=== PATIENT | female | born 1995 | race Caucasian/White ===

== ENCOUNTER 2024-01-01 11:17 | Inpatient (IN) | payer OTHER ==
[2024-01-01] MEDS: ELECTROLYTE-148 SOLN 500 ML IV ONE (11:55)
[2024-01-01] MEDS: ELECTROLYTE-148 SOLN 1,000 ML IV SCH (12:25)
[2024-01-01 12:42] VITALS: BMI 28.9
[2024-01-01] MEDS ORDERED: LIGASURE IMPACT TP ONE (13:06)
[2024-01-01] MEDS ORDERED: ONDANSETRON 4 MG/2 ML VIAL IVPUSH PRN (13:12)
[2024-01-01] MEDS ORDERED: ACETAMINOPHEN 325 MG TABLET (FP) PO PRN (13:12)
[2024-01-01] MEDS ORDERED: IBUPROFEN 600 MG TABLET (FP) PO PRN (13:12)
[2024-01-01] MEDS ORDERED: SODIUM CHLORIDE 0.9% P/F 10 ML VIAL IJ ONE (13:20)
[2024-01-01] MEDS ORDERED: ceFAZolin SODIUM 1 GM VIAL ONE (13:20)
[2024-01-01] MEDS ORDERED: PHENYLEPHRINE HCL 10 MG/1 ML SINGLE DOSE VIAL ONE (13:38)
[2024-01-01] MEDS ORDERED: OXYTOCIN 10 UNITS/ML VIAL ONE ×3 (13:48→14:00)
[2024-01-01] MEDS ORDERED: ONDANSETRON 4 MG/2 ML VIAL ONE (14:04)
[2024-01-01] MEDS ORDERED: MIDAZOLAM HCL 2 MG/2 ML SINGLE DOSE VIAL ONE (14:05)
[2024-01-01] MEDS: morphine SULFATE/PF 1 MG/2 ML (2cc Syringe - QUVA) EP ONE (14:19)
[2024-01-01] MEDS ORDERED: OXYTOCIN 20 UNITS in 0.9% NS 20 UNIT/1,000 ML INFUS.BAG IV ONE (14:44)
[2024-01-01] MEDS: OXYTOCIN 20 UNITS in 0.9% NS 20 UNIT/1,000 ML INFUS.BAG IV SCH (14:50)
[2024-01-01] MEDS ORDERED: ACETAMINOPHEN INJECTION 100 ML IVPB ONE (16:05)
[2024-01-01] MEDS: ACETAMINOPHEN 1000 MG/100 ML BAG IVPB ONE ×2 (16:05→17:52)
[2024-01-02] MEDS: IBUPROFEN 800 MG/8 ML IJ IVPB PRN (01:46)
[2024-01-02 07:02] LABS: BASO % 0.5 % (0-2.0); EOS % 0.6 % (0-4.5); HEMOGLOBIN 8.6 GM/dL (10.7-15.3); LYMPH % 16.4 % (8-40); MCHC 33.2 g/dl (32.0-36.0); MEAN CELL VOLUME 93.3 fl (80-96); MEAN PLT VOLUME 9.8 fl (7.5-11.1); MONO % 7.6 % (3.8-10.2); NEUT % 74.9 % (42.8-82.8); PLATELET COUNT 107 10^3/uL (134-434); RBC 2.79 M/mm3 (3.60-5.2); WHITE BLOOD COUNT 8.4 K/mm3 (4.0-10.0)
[2024-01-02] MEDS: FERROUS SO4 325 MG TABLET (FP) PO SCH (09:45)
[2024-01-02] MEDS: SIMETHICONE 80 MG TAB.CHEW (FP) PO PRN (18:09)
[2024-01-02] MEDS: IBUPROFEN 600 MG TABLET (FP) PO PRN (18:09)
[2024-01-02] MEDS: ACETAMINOPHEN 325 MG TABLET (FP) PO PRN (21:41)
[2024-01-03] MEDS: oxyCODONE HCL 5 MG TABLET PO PRN (06:15)
[2024-01-03] MEDS: BISACODYL 10 MG SUPP.RECT RC PRN (11:38)
[2024-01-04 08:00] LABS: BASO % 0.2 % (0-2.0); EOS % 1.9 % (0-4.5); HEMATOCRIT 24.4 % (32.4-45.2); HEMOGLOBIN 8.3 GM/dL (10.7-15.3); LYMPH % 20.4 % (8-40); MCHC 34.1 g/dl (32.0-36.0); MEAN CELL VOLUME 93.7 fl (80-96); MEAN PLT VOLUME 9.4 fl (7.5-11.1); MONO % 10.8 % (3.8-10.2); NEUT % 66.7 % (42.8-82.8); PLATELET COUNT 122 10^3/uL (134-434); RDW 15.1 % (11.6-15.6); WHITE BLOOD COUNT 7.2 K/mm3 (4.0-10.0)
[2024-01-04 10:58] VITALS: BP 104/70; PULSE 76; RESP 16; TEMP 98.3
[2024-01-05 09:39] LABS: POC NITRAZINE POS
== END 2024-01-04 12:00 | disposition home or self-care (01) | DRG 540 ==
LOC: JLDR 11:17 → J3W 16:45
PROVIDERS: ADMIT Student in an Organized Health Care Education/Training Program; ATTEND Student in an Organized Health Care Education/Training Program
PROC: 10D00Z1 Extraction of Products of Conception, Low, Open Approach (ICD-10-PCS; principal; 2024-01-01)
PROC: 0UT70ZZ Resection of Bilateral Fallopian Tubes, Open Approach (ICD-10-PCS; 2024-01-01)
DX: O34.211 Maternal care for low transverse scar from previous cesarean delivery (principal); O32.1XX0 Maternal care for breech presentation, not applicable or unspecified; O69.81X0 Labor and delivery complicated by cord around neck, without compression, not applicable or unspecified; O90.81 Anemia of the puerperium; D64.9 Anemia, unspecified; Z3A.39 39 weeks gestation of pregnancy; Z37.0 Single live birth
CPT/HCPCS: 36415; 80053; 83986-QW; 85025; 85610; 85730; 86780; 86850; 86900; 86901; 88305-TC; 88307-TC; 94010; J0131